=== PATIENT | female | born 1975 | race Caucasian/White ===

== ENCOUNTER 2024-09-29 14:24 | Emergency (ER) | payer SELFPAY ==
[2024-09-29 14:27] VITALS: BP 135/95; PULSE 107; RESP 18; TEMP 37; O2SAT 94; BMI 23.6
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
--- NOTE | 2024-09-29 14:59 | XRR_ITS ---
PROCEDURE INFORMATION: Exam: XR Left Elbow Exam date and time: 09/29/2024 3:06 PM Age: 48 years old Clinical indication: Pain; Elbow; Left TECHNIQUE: Imaging protocol: Radiologic exam of the left elbow. Views: 3 or more views. COMPARISON: CR XR shoulder LT min 2V* [id number] 09/29/2024 3:06 PM FINDINGS: Bones/joints: Small marginal spurs along the outer aspect of the ulnar humeral joint. There is also a small traction spur above the lateral epicondyle. No fracture, dislocation or malalignment. Soft tissues: Unremarkable. No joint effusion detected. XR/XR elbow LT min 3V* [id number] IMPRESSION: No acute bony abnormalities.
[2024-09-29] MEDS: orphenadrine 30 mg/mL Inj 2 mL 60 MG IM (15:10)
[2024-09-29] MEDS: HYDROcodone-acetaminophen 7.5-325 mg Tablet 1 TAB PO (15:10)
[2024-09-29] MEDS: ketorolac 30 mg/mL INJ IM (15:10)
[2024-09-29] MEDS: dexamethasone 10 mg/mL INJ IM (16:03)
[2024-09-29 16:05] VITALS: BP 109/73; PULSE 82; O2SAT 96
--- NOTE | 2024-10-01 01:33 | DCPLANNER ---
Message sent to clinics to establish a PCP.
== END 2024-09-29 16:07 | disposition home or self-care (01) ==
PROVIDERS: Emergency Provider Nurse Practitioner Family; PCP Obstetrics & Gynecology
DX: M67.824 Other specified disorders of tendon, left elbow (principal)
CPT/HCPCS: 73030; 73080; 96372; 99284; J1100; J1885; J2360

== ENCOUNTER 2024-11-09 10:28 | Inpatient (IN) | payer MEDICAID, SELFPAY ==
[2024-11-09] VITALS (7 sets, daily range): BP systolic 117–164; BP diastolic 64–102; PULSE 65–86; RESP 14–18; TEMP 36.7–36.9; O2SAT 96–98; BMI 22.6
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
[2024-11-09 11:08] LABS: Amphetamines Screen Urine Negative (Negative); Barbiturates Screen Urine Negative (Negative); Benzodiazepines Screen Urine Negative (Negative); Cocaine Screen Urine Negative (Negative); Opiate Screen Urine Negative (Negative); PCP Screen Urine Negative (Negative); THC Screen Urine Positive (Negative)
--- NOTE | 2024-11-09 11:08 | PC.PHAR ---
Patient staes she is taking Lamotrigine , Gabapentin , and Lunesta . I called [facility] patient stated that is where she transfered to . They have nothing filled for patient [facility] did state she had filled in [place] , but it has been awhile. I also spoke to [facility] .That is where her prescription are showing last fill . August was the last time she filled anything , and when I asked Patient ,she said she is no longer taking.
--- NOTE | 2024-11-09 11:41 | PC.NURSE ---
BELONGINGS INVENTORIED WITH SECURITY TOM AND THIS NURSE.
--- NOTE | 2024-11-09 12:08 | PC.NURSE ---
96 hour hold rights read to patient. Jagjit from security present during reading of rights. Copy of rights given to patient. Patient verbalized understandings.
[2024-11-09 12:34] LABS: Basophils # 0.1 10^3/uL (0.0-0.1); Eosinophils # 0.3 10^3/uL (0.0-0.8); Hematocrit 37.5 % (36-47); Lymphocytes # 2.8 10^3/uL (0.8-4.8); Lymphocytes % 33.7 %; Mean Corpuscular HGB Conc 33.6 g/dL (30-55); Mean Corpuscular Hemoglobin 31.2 pg (27-33); Mean Corpuscular Volume 92.8 fl (85-98); Mean Platelet Volume 8.5 fL (7.4-10.4); Monocytes # 0.6 10^3/uL (0.2-0.9); Monocytes % 6.7 %; Neutrophils % 55.1 %; Nucleated Red Blood Cells % 0 %; Platelet Count 370 10^3/cmm (157-399); Red Blood Count 4.04 10^6/uL (3.85-5.65); Red Cell Distribution Width 12.6 % (12.1-15.1); White Blood Count 8.34 10^3/uL (3.29-11.43)
[2024-11-09 12:51] LABS: Alanine Aminotransferase 9 U/L (0-33); Albumin Level 4.6 g/dL (3.5-5.2); Alkaline Phosphatase 63 U/L (35-105); Anion Gap 13.5 (5-19); Aspartate Amino Transferase 16 U/L (0-32); Blood Urea Nitrogen 12 mg/dL (6-20); Calcium 9.8 mg/dL (8.5-10.5); Carbon Dioxide 27 mmol/L (22-29); Chloride 102 mmol/L (98-107); Creatinine Clr Calc Pharmacy 132.5251; Globulin 2.6 g/dL (1.3-4.6); Glomerular Filtration Rate 168.3 mL/min (90-130); Glucose 126 mg/dL (65-115); Osmolality Calculated 289 mOsm/kg (285-295); Potassium 3.5 mmol/L (3.5-5.1); Sodium 139 mmol/L (136-145); Total Bilirubin 0.2 mg/dL (0.15-1.2); Total Protein 7.2 g/dL (6.6-8.7)
[2024-11-09 12:53] LABS: Acetaminophen < 5.0 ug/mL (10-30); Alcohol Level < 10 mg/dL (0-10)
--- NOTE | 2024-11-09 13:43 | PC.NURSE ---
This nurse attempted to call report to [facility], spoke to Marivel who stated [facility] would call back for report. [phone].
--- NOTE | 2024-11-09 15:52 | PC.NURSE ---
Attempted to call report at this time spoke to Marivel who stated they have no one to take report at this time and that npu would call back.
--- NOTE | 2024-11-09 16:36 | PC.NURSE ---
report called to Manas at [phone], NPU.
[2024-11-09] MEDS: OLANZapine 5 mg ODT PO (17:57)
[2024-11-09] MEDS: ibuprofen 600 mg Tablet PO (17:57)
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
[2024-11-09] MEDS: trazodone 50 mg Tablet PO (20:14)
[2024-11-10] MEDS: acetaminophen 325 mg Tablet 650 MG PO (03:22)
[2024-11-10 06:00] VITALS: BP 120/72; PULSE 74; RESP 18; TEMP 36.6; O2SAT 96
[2024-11-10] MEDS: fixodent 39 gm Tube 1 APPLIC DENTAL (08:30)
[2024-11-10] MEDS: ibuprofen 600 mg Tablet PO (08:56)
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
[2024-11-10] MEDS: nicotine 21 mg Patch 1 PATCH TRANSDERMA (09:18)
[2024-11-10] MEDS: OLANZapine 5 mg ODT PO ×2 (09:39→16:12)
[2024-11-10] MEDS: haloperidol 5 mg Tablet PO ×2 (10:45→18:22)
[2024-11-10] MEDS: lamoTRIgine 100 mg Tablet 300 MG PO (12:31)
[2024-11-10 14:00] VITALS: BP 114/76; PULSE 74; RESP 16; TEMP 37; O2SAT 98
[2024-11-10] MEDS: gabapentin 400 mg Capsule 800 MG PO ×2 (15:09→20:18)
--- NOTE | 2024-11-10 16:12 | PC.NURSE ---
prn Zyprexa zydis 5 mg given sublingual per pt c/o stated anxiety
[2024-11-10] MEDS: trazodone 50 mg Tablet PO (21:20)
[2024-11-10 22:00] VITALS: BP 99/74; PULSE 79; RESP 17; O2SAT 99
[2024-11-11 06:00] VITALS: BP 90/61; PULSE 98; RESP 17; TEMP 36.8; O2SAT 98
[2024-11-11] MEDS: ibuprofen 600 mg Tablet PO (06:11)
[2024-11-11] MEDS: gabapentin 400 mg Capsule 800 MG PO ×3 (08:23→20:28)
[2024-11-11] MEDS: lamoTRIgine 100 mg Tablet 300 MG PO (08:24)
[2024-11-11] MEDS: nicotine 21 mg Patch 1 PATCH TRANSDERMA (09:10)
[2024-11-11] MEDS: OLANZapine 5 mg ODT PO ×2 (11:31→18:08)
[2024-11-11 14:00] VITALS: BP 118/79; PULSE 92; RESP 16; TEMP 37; O2SAT 95
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
[2024-11-11] MEDS: nicotine 4 mg lozenge MUCOUS MEM (16:11)
[2024-11-11] MEDS: fixodent 39 gm Tube 1 APPLIC DENTAL (16:27)
[2024-11-11] MEDS: haloperidol 5 mg Tablet PO (19:10)
[2024-11-11] MEDS: trazodone 50 mg Tablet PO (20:28)
[2024-11-11 22:00] VITALS: BP 130/77; PULSE 87; RESP 17; TEMP 36.6; O2SAT 98
[2024-11-12] MEDS: ibuprofen 600 mg Tablet PO ×2 (04:25→18:05)
[2024-11-12 06:00] VITALS: BP 123/80; PULSE 105; RESP 17; TEMP 36.6; O2SAT 98
[2024-11-12] MEDS: nicotine 4 mg lozenge MUCOUS MEM ×4 (06:09→18:05)
[2024-11-12] MEDS: gabapentin 400 mg Capsule 800 MG PO ×3 (08:53→21:02)
[2024-11-12] MEDS: lamoTRIgine 100 mg Tablet 300 MG PO (08:53)
[2024-11-12] MEDS: ARIPiprazole 10 mg Tablet 5 MG PO (08:54)
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
[2024-11-12 14:00] VITALS: BP 120/79; PULSE 92; RESP 16; TEMP 36.9; O2SAT 97
[2024-11-12] MEDS: OLANZapine 5 mg ODT PO ×2 (16:13→21:01)
[2024-11-12 16:20] LABS: Lamotrigine (Lamictal) Level 5.9 mcg/mL (2.5-15.0)
[2024-11-12 20:29] VITALS: BP 129/89; PULSE 80; RESP 18; TEMP 36.8; O2SAT 97
[2024-11-12] MEDS: trazodone 50 mg Tablet PO ×2 (20:58→22:24)
[2024-11-13 06:00] VITALS: BP 122/85; PULSE 102; RESP 16; TEMP 37.2; O2SAT 97
[2024-11-13] MEDS: ibuprofen 600 mg Tablet PO ×2 (06:26→18:21)
[2024-11-13] MEDS: nicotine 4 mg lozenge MUCOUS MEM ×5 (06:35→17:48)
[2024-11-13] MEDS: ARIPiprazole 10 mg Tablet 5 MG PO (08:16)
[2024-11-13] MEDS: gabapentin 400 mg Capsule 800 MG PO ×3 (08:16→20:27)
[2024-11-13] MEDS: lamoTRIgine 100 mg Tablet 300 MG PO (08:16)
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
[2024-11-13] MEDS: OLANZapine 5 mg ODT PO ×3 (12:12→20:27)
[2024-11-13 14:00] VITALS: BP 134/75; PULSE 83; RESP 16; TEMP 36.9; O2SAT 98
[2024-11-13] MEDS: haloperidol 5 mg Tablet PO ×2 (14:35→23:16)
[2024-11-13] MEDS: trazodone 50 mg Tablet PO ×2 (20:28→23:16)
[2024-11-13] MEDS: hyDROXYzine 25 mg Capsule 50 MG PO (20:28)
[2024-11-13 20:58] VITALS: BP 106/72; PULSE 85; RESP 17; TEMP 36.9; O2SAT 96
[2024-11-13] MEDS: propranolol 20 mg Tablet PO (23:16)
[2024-11-14] MEDS: ondansetron 4 MG Tablet PO (03:06)
[2024-11-14] MEDS: ibuprofen 600 mg Tablet PO ×2 (05:57→14:05)
[2024-11-14 06:00] VITALS: BP 118/81; PULSE 89; RESP 17; TEMP 36.6; O2SAT 97
[2024-11-14] MEDS: nicotine 4 mg lozenge MUCOUS MEM ×3 (06:22→13:40)
[2024-11-14] MEDS: alum-mag-hydroxide-sime 30 mL UDC PO (07:09)
[2024-11-14] MEDS: promethazine 25 mg/mL SDV 1 mL 50 MG IM ×2 (08:33→18:00)
[2024-11-14] MEDS: lamoTRIgine 100 mg Tablet 300 MG PO (08:34)
[2024-11-14] MEDS: polyethylene glycol 3350 Pkt 17 gm PO (08:34)
[2024-11-14] MEDS: ARIPiprazole 10 mg Tablet 5 MG PO (08:34)
[2024-11-14] MEDS: gabapentin 400 mg Capsule 800 MG PO ×3 (08:34→21:38)
[2024-11-14] MEDS: bisacodyl 5 mg Tablet 10 MG PO (10:49)
--- NOTE | 2024-11-14 11:06 | PC.NURSE ---
Patient reports last BM as 11/08/24. Patient admitted that she was too embarrassed to tell staff about the constipation, stating that she would tell staff that everything is fine. Patient's abdomen is distended and round. patient reports abdominal pain. BS active in all four quadrants. Patient given miralax. Later, patient given 10mg dulcusate PO. Will continue to monitor.
[2024-11-14] MEDS: OLANZapine 5 mg ODT PO ×3 (12:05→23:05)
[2024-11-14 14:00] VITALS: BP 149/74; PULSE 74; RESP 16; TEMP 37; O2SAT 96
--- NOTE | 2024-11-14 14:23 | XRR_ITS ---
PROCEDURE INFORMATION: Exam: XR Abdomen Exam date and time: 11/14/2024 9:52 PM Age: 49 years old Clinical indication: Abdominal pain; Prior surgery; Surgery date: 6+ months; Surgery type: Hysterectomy; Appendectomy; Additional info: Constipation TECHNIQUE: Imaging protocol: Radiologic exam of the abdomen. Views: Frontal supine view of the abdomen. 1 View. COMPARISON: No relevant prior studies available. FINDINGS: Gastrointestinal tract: Normal. No bowel dilation. Limited evaluation free given supine examination. Bones/joints: Unremarkable. XR/XR KUB portable [id number] IMPRESSION: As above.
[2024-11-14] MEDS: haloperidol 5 mg Tablet PO (15:05)
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
--- NOTE | 2024-11-14 17:45 | PC.NURSE ---
X-RAY This nurse attempted to talk with X-Ray about an ETA for KUB. No answer. The whizzer operator agreed to continue to call them to see about it. Still waiting to hear back.
--- NOTE | 2024-11-14 18:00 | PC.NURSE ---
PRN PHENERGAN 50 MG GIVEN IM IN RIGHT BUTTOCK PER PT C/O NAUSEA/VOMITING. ATTEMPTED TO EAT SUPPER IN DAY ROOM, SAYING SHE THREW UP A LITTLE IN THE BATHROOM SHORTLY AFTER ATTEMPTING TO EAT. TOOK MEDICINE WITHOUT INCIDENT. WILL CONT TO MONITOR FOR DESIRED MED EFFECTIVENESS
--- NOTE | 2024-11-14 18:40 | PC.NURSE ---
Patient vomiting. Patient reports nausea and abdominal discomfort. NPU received call from XR staff saying they will be down as soon as possible to perform KUB on patient. Patient swabbed for influenza a and b because of concerns for flu. Patient currently resting in bed on right side.
[2024-11-14 18:56] LABS: Influenza A by IFA Negative (Negative); Influenza B by IFA Negative (Negative)
[2024-11-14] MEDS: propranolol 20 mg Tablet PO (21:38)
[2024-11-14 22:00] VITALS: BP 117/76; PULSE 67; RESP 16; TEMP 36.7; O2SAT 97
[2024-11-14] MEDS: trazodone 50 mg Tablet PO (22:11)
[2024-11-15] MEDS: magnesium hydroxide 30 mL UDC PO (02:24)
[2024-11-15] MEDS: ibuprofen 600 mg Tablet PO (03:28)
[2024-11-15 05:27] VITALS: BP 107/66; PULSE 81; RESP 17; TEMP 36.7; O2SAT 99
[2024-11-15] MEDS: ARIPiprazole 10 mg Tablet 5 MG PO (08:22)
[2024-11-15] MEDS: OLANZapine 5 mg ODT PO ×2 (08:22→13:56)
[2024-11-15] MEDS: lamoTRIgine 100 mg Tablet 200 MG PO (08:22)
[2024-11-15] MEDS: gabapentin 400 mg Capsule 800 MG PO ×2 (08:22→13:56)
[2024-11-15] MEDS: propranolol 20 mg Tablet PO ×2 (08:22→15:02)
[2024-11-15] MEDS: nicotine 4 mg lozenge MUCOUS MEM ×2 (08:33→12:45)
[2024-11-15 14:00] VITALS: BP 144/85; PULSE 89; RESP 16; TEMP 36.9; O2SAT 96
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
[2024-11-15 16:14] VITALS: BP 144/85; PULSE 89; RESP 16; TEMP 36.9; O2SAT 96
[2024-11-15] MEDS: sertraline 50 mg Tablet 25 MG PO (17:09)
== END 2024-11-15 17:33 | disposition home or self-care (01) | DRG 881 ==
LOC: ER 11:20 → NP 13:31
PROVIDERS: Psychiatry & Neurology Psychiatry; Admitting Provider Psychiatry & Neurology Psychiatry; Emergency Provider Physician Assistant; Visit Provider Psychiatry & Neurology Psychiatry
DX: F32.9 Major depressive disorder, single episode, unspecified (principal); R45.851 Suicidal ideations; F43.10 Post-traumatic stress disorder, unspecified; Z63.0 Problems in relationship with spouse or partner; Z91.419 Personal history of unspecified adult abuse; F40.01 Agoraphobia with panic disorder; K59.00 Constipation, unspecified; Z81.8 Family history of other mental and behavioral disorders
CPT/HCPCS: 36415; 74018; 80053; 80175; 80306; 80307; 85025; 87804; 96372; 97150; 97165; 99285; J2550; Q0162

== ENCOUNTER 2025-04-23 06:57 | Emergency (ER) | payer MEDICAID, SELFPAY ==
--- NOTE | 2025-04-23 06:58 | ECG_ITS ---
[facility] Date: 2025-04-23 Pat Name: Amy Kiser Department: Room: Gender: Female Living Advisor: : [id number] Requested By: Neetu Bhat Order Number: [id number] Reading MD: TANVI SIMS Measurements Intervals [place] Rate: 51 P: 43 NJ: 130 QRS: 65 QRSD: 82 T: 68 QT: 462 QTc: 429 Interpretive Statements SINUS BRADYCARDIA No previous ECG available for comparison Electronically Signed On 04-25-2025 19:06:40 CDT by TANVI SIMS [email or web address]
--- NOTE | 2025-04-23 06:58 | XRR_ITS ---
PROCEDURE INFORMATION: Exam: XR Chest Exam date and time: 04/23/2025 7:29 AM Age: 49 years old Clinical indication: Pain; Chest pressure; Additional info: Cp TECHNIQUE: Imaging protocol: Radiologic exam of the chest. Views: 1 view. COMPARISON: CR XR KUB portable [id number] 11/14/2024 9:52 PM FINDINGS: Lungs: Unremarkable. No consolidation. Pleural spaces: Unremarkable. No pleural effusion. No pneumothorax. Heart/Mediastinum: Unremarkable. No cardiomegaly. Bones/joints: Unremarkable. XR/XR chest 1V portable [id number] IMPRESSION: No acute findings.
[2025-04-23 07:01] VITALS: BP 189/85; PULSE 75; RESP 19; TEMP 36.5; O2SAT 100; BMI 23.4
--- NOTE | 2025-04-23 07:02 | CTR_ITS ---
PROCEDURE INFORMATION: Exam: CT Abdomen And Pelvis With Contrast Exam date and time: 04/23/2025 7:42 AM Age: 49 years old Clinical indication: Fever; Abdominal pain; Generalized; Prior surgery; Surgery date: 6+ months; Surgery type: Hyster, appy; Additional info: Severe abd pain, nausea, fever TECHNIQUE: Imaging protocol: Computed tomography of the abdomen and pelvis with contrast. Radiation optimization: All CT scans at this facility use at least one of these dose optimization techniques: automated exposure control; mA and/or kV adjustment per patient size (includes targeted exams where dose is matched to clinical indication); or iterative reconstruction. Contrast material: OMNIPAQUE 350; Contrast volume: 100 ml; Contrast route: INTRAVENOUS (IV); COMPARISON: CR XR KUB portable [id number] 11/14/2024 9:52 PM RADIATION DOSE METRICS: Total DLP (mGy-cm): 594.76 FINDINGS: Liver: Normal. No mass. Gallbladder and biliary ducts: Normal. No calcified stones. No ductal dilation. Pancreas: Normal. No ductal dilation. Spleen: Normal. No splenomegaly. Adrenal glands: Normal. No mass. Kidneys and ureters: Normal. No hydronephrosis. Stomach and bowel: Unremarkable. No obstruction. No mucosal thickening. Appendix: Appendectomy. Intraperitoneal space: Unremarkable. No free air. No significant fluid collection. Vasculature: Unremarkable. No abdominal aortic aneurysm. Lymph nodes: Unremarkable. No enlarged lymph nodes. Urinary bladder: Unremarkable as visualized. Reproductive: Hysterectomy. Bones/joints: Unremarkable. No acute fracture. Soft tissues: Unremarkable. CT/CT abdomen pelvis w con* [id number] IMPRESSION: No acute findings.
--- NOTE | 2025-04-23 07:16 | W.ED.ABDPA2 ---
HPI - Abdominal Pain General: Chief Complaint: Abdominal Pain Stated Complaint: chest pain Time Seen by Provider: 04/23/25 06:58 Source: patient Mode of arrival: ambulatory Limitations: no limitations History of Present Illness: 49-year-old female states that she been having abdominal pain along with nausea vomiting today. States pain is diffuse in nature along with cramping send multiple episodes of vomiting denies any diarrhea states pain radiates to her chest denies any worse improved factors Associated Symptoms: Reports nausea and vomiting; Denies chills, diarrhea, dysuria and fever(s) Related Data Home Medications ?Medication ?Instructions ?Recorded ?Confirmed gabapentin 800 mg tablet 800 mg PO TID 11/10/24 04/23/25 doxepin 10 mg capsule 10 mg PO BEDTIME PRN Sleep 04/23/25 04/23/25 duloxetine 30 mg capsule,delayed 30 mg PO BEDTIME 04/23/25 04/23/25 release lamotrigine 150 mg tablet 300 mg PO QAM 04/23/25 04/23/25 Previous Rx's ?Medication ?Instructions ?Recorded metoclopramide HCl 10 mg tablet 10 mg PO Q6H PRN nausea and 04/23/25 (Reglan) vomiting #20 tabs Allergies Allergy/AdvReac Type Severity Reaction Status Date / Time Sulfa (Sulfonamide Allergy ALGY-Rash Verified 09/29/24 14:36 Antibiotics) Review of Systems Const: Denies: fever(s), chills, body aches or change in appetite Eyes: Denies: blurry vision or eye discomfort ENMT: Denies: throat pain or dental pain Card: Reports: chest pain Resp: Denies: dyspnea GI: Reports: abdominal pain, nausea and vomiting; Denies: diarrhea : Denies: dysuria Musc: Denies: neck pain or back pain Skin/Breast: Denies: rash Neuro: Denies: headache(s) Physical Exam Const: COMMON NORMALS: no acute distress, patient oriented x3 and healthy appearing HENMT: COMMON NORMALS: normocephalic and atraumatic HEAD & SCALP: normocephalic and atraumatic Eye: COMMON NORMALS: conjunctivae normal CONJUNCTIVA: Yes conjunctivae normal Neck/C-Spine: COMMON NORMALS: full ROM and supple Chest: COMMONS NORMALS: normal inspection of the chest Resp: COMMON NORMALS: normal respiratory effort, No retractions, No use of accessory muscles and clear to auscultation bilaterally AUSCULTATION: clear to auscultation bilaterally Cardio: COMMON NORMALS: regular rate, regular rhythm and No murmurs present (Cardio) RATE: regular rate RHYTHM: regular rhythm GI: COMMON NORMALS: Normal to inspection, nondistended, normoactive bowel sounds present, Soft to palpation, non-tender and no masses PALPATION: Yes Soft to palpation Extremity: COMMON NORMALS: normal to inspection and full ROM Neuro: COMMON NORMALS: patient oriented x3, moves all extremities and no focal motor deficits Psych: COMMON NORMALS: mental status grossly normal, Normal thought process present and cooperative THOUGHT PROCESS: Normal thought process present Skin: COMMON NORMALS: no rashes or lesions noted and no wounds GENERAL SKIN EXAM: no rashes or lesions noted Course Vital Signs: Vital signs: Vital Signs Temperature 97.7 F 04/23/25 07:01 Pulse Rate 85 04/23/25 11:18 Respiratory Rate 18 04/23/25 08:01 Blood Pressure 170/82 04/23/25 11:18 Pulse Oximetry 98 04/23/25 11:18 Oxygen Delivery Me thod Room Air 04/23/25 07:01 MDM - Abdominal Pain Medical Decision Making Patient presents here with vomiting all abdominal pain blood work CT are normal she does feel improved after meds we will prescribe her Reglan she is to follow-up with PCP and return if worsening. Medical Records I reviewed the patient's medical records. Lab Data I reviewed the patient's lab results. 04/23/25 07:18 04/23/25 07:18 Labs/Radiology: Radiology Impressions Chest X-Ray 04/23/25 06:58 IMPRESSION: No acute findings. Abdomen/Pelvis CT 04/23/25 07:02 IMPRESSION: No acute findings. Laboratory Results WBC 11.37 10^3/uL (3.29-11.43) 04/23/25 07:18 RBC 4.73 10^6/uL (3.85-5.65) 04/23/25 07:18 Hgb 14.70 g/dL (11.27-16.99) 04/23/25 07:18 Hct 43.3 % (36-47) 04/23/25 07:18 MCV 91.5 fl (85-98) 04/23/25 07:18 MCH 31.1 pg (27-33) 04/23/25 07:18 MCHC 33.9 g/dL (30-55) 04/23/25 07:18 RDW 12.4 % (12.1-15.1) 04/23/25 07:18 Plt Count 441 10^3/cmm (157-399) H 04/23/25 07:18 MPV 8.4 fL (7.4-10.4) 04/23/25 07:18 Neut % (Auto) 68.7 % 04/23/25 07:18 Lymph % (Auto) 22.4 % 04/23/25 07:18 [place] % (Auto) 6.2 % 04/23/25 07:18 Eos % (Auto) 1.3 % 04/23/25 07:18 Baso % (Auto) 1.0 % 04/23/25 07:18 Neut # (Auto) 7.80 10^3/uL (1.8-7.7) H 04/23/25 07:18 Lymph # (Auto) 2.6 10^3/uL (0.8-4.8) 04/23/25 07:18 [place] # (Auto) 0.7 10^3/uL (0.2-0.9) 04/23/25 07:18 Eos # (Auto) 0.2 10^3/uL (0.0-0.8) 04/23/25 07:18 Baso # (Auto) 0.1 10^3/uL (0.0-0.1) 04/23/25 07:18 Nucleated RBC % (auto) 0 % 04/23/25 07:18 Nucleated RBCs # 0.0 /100WBC 04/23/25 07:18 Sodium 141 mmol/L (136-145) 04/23/25 07:18 Potassium 4.0 mmol/L (3.5-5.1) 04/23/25 07:18 Chloride 102 mmol/L (98-107) 04/23/25 07:18 Carbon Dioxide 22 mmol/L (22-29) 04/23/25 07:18 Anion Gap 21.0 (5-19) H 04/23/25 07:18 BUN 12 mg/dL (6-20) 04/23/25 07:18 Creatinine 0.6 mg/dL (0.5-0.9) 04/23/25 07:18 GFR Calculation 105.4 mL/min (90-130) 04/23/25 07:18 Glucose 148 mg/dL (65-115) H 04/23/25 07:18 Calculated Osmolality 295 mOsm/kg (285-295) 04/23/25 07:18 Calcium 10.5 mg/dL (8.5-10.5) 04/23/25 07:18 Total Bilirubin 0.3 mg/dL (0.15-1.2) 04/23/25 07:18 AST 18 U/L (0-32) 04/23/25 07:18 ALT 9 U/L (0-33) 04/23/25 07:18 Alkaline Phosphatase 90 U/L (35-105) 04/23/25 07:18 Troponin T Baseline < 6 ng/L (0-10) 04/23/25 07:18 Troponin T 120 Minute < 6.0 ng/L (0-10) 04/23/25 09:15 Delta Troponin T 0 ABS# (0-10) 04/23/25 09:15 Total Protein 8.0 g/dL (6.6-8.7) 04/23/25 07:18 Albumin 5.0 g/dL (3.5-5.2) 04/23/25 07:18 Globulin 3.0 g/dL (1.3-4.6) 04/23/25 07:18 Lipase 24 U/L (13-60) 04/23/25 07:18 Urine Color Yellow (Yellow) 04/23/25 07:57 Urine Appearance Clear (CLEAR) 04/23/25 07:57 Urine pH 8.0 (5-7) A 04/23/25 07:57 Ur Specific [place] 1.043 (1.005-1.030) H 04/23/25 07:57 Urine Protein Trace (Negative) A 04/23/25 07:57 Urine Glucose (UA) Negative (Normal) 04/23/25 07:57 Urine Ketones 1+ (Negative) H 04/23/25 07:57 Urine Blood 1+ (Negative) A 04/23/25 07:57 Urine Nitrate Negative (Negative) 04/23/25 07:57 Urine Bilirubin Negative (Negative) 04/23/25 07:57 Urine Urobilinogen 0.2 mg/dL (Negative) 04/23/25 07:57 Ur Leukocyte Esterase Negative (Negative) 04/23/25 07:57 Urine RBC 6-10 /hpf (0-2) 04/23/25 07:57 Urine WBC 0-5 /hpf (0-5) 04/23/25 07:57 Ur Squamous Epith Cells 0-5 /hpf (0-5) 04/23/25 07:57 Amorphous Sediment Not Reportable 04/23/25 07:57 Urine Bacteria None seen /hpf (NONE) 04/23/25 07:57 Hyaline Casts 0.40 /lpf 04/23/25 07:57 All radiology interpretation(s) finalized by discharge Discharge Plan Discharge Patient Disposition: Home Clinical Impression: Vomiting Condition: Stable Prescriptions: New metoclopramide HCl [Reglan] 10 mg tablet 10 mg PO Q6H PRN (Reason: nausea and vomiting) Qty: 20 0RF No Action gabapentin 800 mg Tablet 800 mg PO TID lamotrigine 150 mg tablet 300 mg PO QAM doxepin 10 mg capsule 10 mg PO BEDTIME PRN (Reason: Sleep) duloxetine 30 mg capsule,delayed release(DR/EC) 30 mg PO BEDTIME Discharge Orders: Discharge ED (Routine); Ordered 04/23/25 Ordered By: Neetu Bhat Discharge Diet: Advance as tolerated Discharge Activity: Resume usual activity Patient Instructions: Acute Nausea and Vomiting (ED) Print Language: Gambian Coding Level of Care Code ED [employer] for Joana Corral
[2025-04-23 07:22] VITALS: RESP 15; O2SAT 98
[2025-04-23] MEDS: morphine 4 mg/mL SDV 1 mL IVP (07:22)
[2025-04-23] MEDS: ondansetron 2 mg/ML SDV 2 mL 4 MG IVP (07:22)
[2025-04-23 07:28] LABS: Basophils # 0.1 10^3/uL (0.0-0.1); Eosinophils # 0.2 10^3/uL (0.0-0.8); Eosinophils % 1.3 %; Hematocrit 43.3 % (36-47); Lymphocytes # 2.6 10^3/uL (0.8-4.8); Lymphocytes % 22.4 %; Mean Corpuscular HGB Conc 33.9 g/dL (30-55); Mean Corpuscular Hemoglobin 31.1 pg (27-33); Mean Corpuscular Volume 91.5 fl (85-98); Mean Platelet Volume 8.4 fL (7.4-10.4); Monocytes # 0.7 10^3/uL (0.2-0.9); Monocytes % 6.2 %; Neutrophils % 68.7 %; Nucleated Red Blood Cells % 0 %; Platelet Count 441 10^3/cmm (157-399); Red Blood Count 4.73 10^6/uL (3.85-5.65); Red Cell Distribution Width 12.4 % (12.1-15.1); White Blood Count 11.37 10^3/uL (3.29-11.43)
[2025-04-23] MEDS: sodium chloride 0.9% 1,000 ML 999 ML IV ×2 (07:36→09:42)
[2025-04-23] MEDS: iohexol 350 mg/mL 500 mL Btl (per mL) IV (07:52)
[2025-04-23 07:58] LABS: Troponin(5th) Baseline < 6 ng/L (0-10)
[2025-04-23 08:00] LABS: Alanine Aminotransferase 9 U/L (0-33); Alkaline Phosphatase 90 U/L (35-105); Aspartate Amino Transferase 18 U/L (0-32); Blood Urea Nitrogen 12 mg/dL (6-20); Calcium 10.5 mg/dL (8.5-10.5); Carbon Dioxide 22 mmol/L (22-29); Chloride 102 mmol/L (98-107); Creatinine Clr Calc Pharmacy 85.9335; Glomerular Filtration Rate 105.4 mL/min (90-130); Glucose 148 mg/dL (65-115); Lipase 24 U/L (13-60); Osmolality Calculated 295 mOsm/kg (285-295); Sodium 141 mmol/L (136-145); Total Bilirubin 0.3 mg/dL (0.15-1.2)
[2025-04-23 08:01] VITALS: BP 183/90; PULSE 50; RESP 18; O2SAT 100
[2025-04-23] MEDS: LORazepam 1 MG/0.5 ML injection IVP (08:15)
[2025-04-23] MEDS: metoclopramide 5 mg/mL SDV 2 mL 10 MG IVP (08:20)
--- NOTE | 2025-04-23 08:25 | PC.NURSE ---
Pt refused the diphenhydramine, pt states it makes her anxious.
[2025-04-23 08:53] LABS: Bilirubin Urine Negative (Negative); Blood Urine 1+ (Negative); Glucose Urine UA Negative (Normal); Ketones Urine 1+ (Negative); Leukocyte Esterase Urine Negative (Negative); Nitrate Urine Negative (Negative); Protein Urine Trace (Negative); Urine Appearance Clear (CLEAR); Urine Color Yellow (Yellow); Urobilinogen Urine 0.2 mg/dL (Negative)
[2025-04-23 08:57] LABS: Add Urine Microscopic? YES; Bacteria Urine None Seen /hpf; Squamous Epithelial Cell Urine 0-5 /hpf (0-5); WBC Urine 0-5 /hpf (0-5)
--- NOTE | 2025-04-23 08:58 | ECG_ITS ---
[facility] Test Date: 2025-04-23 Pat Name: Amy Kiser Department: Room: Gender: Female [employer]: : 1975 Requested By: Neetu Bhat Order Number: [id number] Reading MD: TANVI SIMS Measurements Intervals Adams Rate: 49 P: -2 VT: 127 QRS: 75 QRSD: 81 T: 80 QT: 458 QTc: 416 Interpretive Statements SINUS BRADYCARDIA Compared to ECG 04/23/2025 07:03:17 No significant changes Electronically Signed On 04-25-2025 19:08:13 CDT by TANVI SIMS [id number]
[2025-04-23 09:12] LABS: Specific Gravity, Urine 1.043 (1.005-1.030)
[2025-04-23 09:48] LABS: Troponin 5 2HR < 6.0 ng/L (0-10); Troponin 5 2HR Delta 0 ABS# (0-10)
[2025-04-23 10:21] VITALS: BP 178/95
[2025-04-23] MEDS: haloperidol inj 5 mg/mL INJ 1 mL IVP (10:35)
[2025-04-23 11:18] VITALS: BP 170/82; PULSE 85; O2SAT 98
== END 2025-04-23 11:21 | disposition home or self-care (01) ==
PROVIDERS: Emergency Provider Emergency Medicine
DX: R11.2 Nausea with vomiting, unspecified (principal); R07.9 Chest pain, unspecified; Z79.899 Other long term (current) drug therapy
CPT/HCPCS: 36415; 71045; 74177; 80053; 81001; 83690; 84484; 85025; 93005; 96361; 96374; 96375; 99285; J1630; J2060; J2270; J2405; J2765; J7030

== ENCOUNTER 2025-10-05 09:53 | Outpatient (CLI) | payer MEDICAID, SELFPAY ==
--- NOTE | 2025-10-05 10:03 | XR_ITS ---
WS: [id number] Left shoulder, 2 views, 10/05/2025 Clinical Data: LEFT SHOULDER PAIN Comparison: None. Findings: No fractures or dislocations are seen. The AC joint is normal. The adjacent left clavicle, left scapula and ribs are normal. The soft tissues are unremarkable. XR/XR shoulder LT min 2V* [id number] Impression: Negative left shoulder.
--- NOTE | 2025-10-05 10:03 | XR_ITS ---
WS: [id number] Left elbow, 2 views, 10/05/2025 Clinical Data: LEFT ELBOW PAIN Comparison: None. Findings: No fractures or dislocations are seen. The radial head is normal. The soft tissues are unremarkable. There is osteoarthritis of the ulnohumeral articulation with sclerosis and irregularity. There are calcifications adjacent to the lateral humeral condyle which may be from old trauma. XR/XR elbow LT 2V [id number] Impression: Osteoarthritis of the left ulnohumeral articulation.
--- NOTE | 2025-10-05 10:03 | XR_ITS ---
WS: [id number] Left arm and humerus, 2 views, 10/05/2025 Clinical Data: LEFT ARM PAIN Comparison: None. Findings: No fractures or dislocations are seen. The shaft of the humerus is intact. No bone destruction or erosion is seen. The soft tissues are normal. XR/[place] [id number] Impression: Negative left arm and humerus.
== END 2025-10-05 09:54 | disposition home or self-care (01) ==
LOC: RAD 09:58
PROVIDERS: PCP Nurse Practitioner Family; Visit Provider Nurse Practitioner Family
DX: M25.512 Pain in left shoulder (principal); M79.602 Pain in left arm; M25.522 Pain in left elbow; M19.022 Primary osteoarthritis, left elbow; M61.422 Other calcification of muscle, left upper arm
CPT/HCPCS: 73030; 73060; 73070